=== PATIENT | male | born 1995 | race Caucasian/White ===

== ENCOUNTER 2016-05-27 21:15 | Emergency (ER) | payer BC ==
[~2016-05-27 21:15] MED LIST: PROCHLORPERAZINE INJ 5 MG/ML 2 ML VIAL IV ONE; diPHENhydraMINE IV* 50 MG/ML 1 ml VIAL (BENADRYL) IV ONE
--- NOTE | 2016-05-27 22:14 | RAD ---
INDICATION: Worse headache of his life. COMPARISON: There are no prior studies available for comparison. TECHNIQUE: Contiguous axial sections of the brain were obtained from the skull base to the vertex without contrast. FINDINGS: The ventricles, cisterns and sulci are within normal limits. No significant focal abnormality or mass effect is seen. There is no evidence for hemorrhage. No significant focal osseous abnormality is seen. The visualized portion of the paranasal sinuses and mastoid air cells appear clear. IMPRESSION: NO EVIDENCE FOR ACUTE INTRACRANIAL ABNORMALITY.
[2016-05-27] MEDS ORDERED: NS 0.9% 1000 ML* 1,000 ML IV ONE (23:58)
[2016-05-28 00:43] LABS: Hematocrit 42 % (42-52); Hemoglobin 14.5 g/dl (14.0-18.0); Mean Corpuscular HGB Conc 35 g/dl (31-36); Mean Corpuscular Hemoglobin 30 pg (27-31); Mean Corpuscular Volume 86 fL (80-94); Mean Platelet Volume 9 um3 (7.4-10.4); Red Cell Distribution Width 13 % (10.5-15); White Blood Count 6.1 10^3/ul (3.5-10.8)
[2016-05-28 01:08] LABS: BUN/Creatinine Ratio 13.8 (8-20); EGFR African American 131.6 (>60); EGFR Non-African American 102.3 (>60); Globulin 2.7 g/dL (2-4); Potassium 3.8 mmol/L (3.5-5.0); Total Bilirubin 0.8 mg/dL (0.2-1.0); Total Protein 7.7 g/dL (6.4-8.9)
[2016-05-28] MEDS ORDERED: Iohexol 350* (CONTRAST) 500 ML MDV IV ONE (01:13)
[2016-05-28] MEDS ORDERED: Ketorolac INJ* 30 MG/ML 1 ML VIAL IV PUSH ONE (02:37)
--- NOTE | 2016-05-28 02:59 | ED ---
Headache - HPI Summary HPI Summary: Pt here w/ acute on chronic LAU. Started on Rt side of head in parietal region 1 month ago - was doing sit ups when he had abrupt pain and has had a LAU since. Intermittent. He is here today as he developed a Lt sided LAU while eating dinner tonight. Denies visual change, photophobia, phonophobia, dalia neck pain although LAU is worse w/ neck rotation. Denies nausea, vomiting, difficulty focusing, weakness, numbness, slurred speech, syncope. Denies relief despite trying ibuprofen and acetaminophen which he's been taking in high doses since this started 1 month ago. No previous h/o LAU's. Admits he's had intermittently elevated BP but never high enough or consistently enough to warrant anti- hypertensive medication. Was seen at [facility] who recommended an MRA. NOTE: h/o Lyme disease 6 years ago. Was tx'd w/ anbx. No issues since -denies palpitations, chest pain, joint pain, rash, LAU, paresthesias. Denies h/o stress, muscle tension, neck injury. No radicular pain or neuropathies. Fam h/o migraines. - History Of Current Complaint Chief Complaint: EDHeadache Stated Complaint: HEAD PAIN Time Seen by Provider: 05/27/16 22:19 Hx Obtained From: Patient - Allergies/Home Medications Allergies/Adverse Reactions: Allergies Allergy/AdvReac Type Severity Reaction Status Date / Time No Known Allergies Allergy Verified 05/28/16 00:33 Home Medications: Home Medications NK [No Home Medications Reported] 05/28/16 [History Confirmed 05/28/16] PMH/Surg Hx/FS Hx/Imm Hx Previously Healthy: Yes Endocrine/Hematology History: Denies: Hx Anticoagulant Therapy, Hx Blood Disorders, Hx Diabetes, Hx Unexplained Bleeding, Hx Coagulopothy, Autoimmune Disease Cardiovascular History: Reports: Hx Hypertension - BORDERLINE, UNMEDICATED Denies: Hx Cardiomegaly, Hx Congenital Heart Disease, Hx Myocardial Infarction, Hx Rheumatic Fever, Hx Syncope, Hx Valvular Heart Disease History: Denies: Hx Renal Disease Musculoskeletal History: Denies: Hx Arthritis, Hx Back Problems Neurological History: Denies: Hx Headaches, Hx Migraine, Hx Transient Ischemic Attacks (TIA), Other Neuro Impairments/Disorders - h/o head injury - Immunization History Immunizations Up to Date: Yes - including meningiococcal Infectious Disease History: No Infectious Disease History: Reports: History Other Infectious Disease - Lyme at 6y.o. - tx'd w/o complications or residual effects Denies: Traveled Outside the [place] in Last 30 Days - Family History Known Family History: Positive: Other - mom- migraines - Social History Occupation: Student Lives: With Family - roommate Alcohol Use: None Hx Substance Use: No Substance Use Type: Reports: None Hx Tobacco Use: No Smoking Status (MU): Never Smoked Tobacco Review of Systems Negative: Fever, Chills Negative: Photophobia, Blurred Vision, Diplopia Negative: Sore Throat, Ear Ache, Nasal Discharge Negative: Palpitations, Chest Pain Negative: Shortness Of Breath, Cough Negative: Abdominal Pain, Vomiting, Diarrhea, Nausea Negative: burning, dysuria, discharge, frequency, flank pain Negative: Arthralgia, Myalgia Negative: Rash, Bruising Positive: Headache - see HPI. Negative: Weakness, Paresthesia, Numbness, Syncope, Slurred Speech Psychological: Normal - concerned All Other Systems Reviewed And Are Negative: Yes Physical Exam Triage Information Reviewed: Yes Vital Signs On Initial Exam: Initial Vitals Temp Pulse Resp BP Pulse Ox 99.2 F 90 18 175/75 98 05/27/16 21:28 05/27/16 21:28 05/27/16 21:28 05/27/16 21:28 05/27/16 21:28 Vital Signs Reviewed: Yes Appearance: Positive: Well-Appearing, No Pain Distress, Well-Nourished Skin: Positive: Warm, Dry - no ecchymosis, no erythema, no lesions over affected area Head/Face: Positive: Normal Head/Face Inspection - NTTP, no gross deformity. Negative: Temporal Artery Tenderness, TMJ Tenderness, Scalp Eyes: Positive: Normal, EOMI, UBALDO - no photophobia, Conjunctiva Clear. Negative: Conjunctiva Inflammed, Discharge ENT: Positive: Normal ENT inspection, Hearing grossly normal, Pharynx normal, TMs normal. Negative: Nasal congestion, Nasal drainage, Tonsillar swelling, Tonsillar exudate Dental: Negative: Dental Fracture @, Abscess @ Neck: Positive: Supple, Nontender, No Lymphadenopathy Respiratory/Lung Sounds: Positive: Clear to Auscultation, Breath Sounds Present. Negative: Rales, Rhonchi, Wheezes Cardiovascular: Positive: Normal, RRR, Pulses are Symmetrical in both Upper and Lower Extremities, Other - no carotid bruit appreciated B/L upon auscultation, S1, S2. Negative: Murmur, Rub, Leg Edema Left, Leg Edema Right Abdomen Description: Positive: Nontender, Soft Bowel Sounds: Positive: Present Musculoskeletal: Positive: Normal, Strength/ROM Intact Neurological: Positive: Normal, Sensory/Motor Intact, Alert, Oriented to Person Place, Time, CN Intact II-III, Reflexes Intact, Normal Gait, Facial Symmetry, Speech Normal, Other - coordinated. Negative: Disoriented Psychiatric: Positive: Normal - pleasant, calm, appreciative - [place] Coma Scale Coma Scale Total: 15 Diagnostics - Vital Signs Vital Signs Temp Pulse Resp BP Pulse Ox 05/28/16 01:10 78 130/61 96 05/28/16 01:00 80 126/51 98 05/28/16 00:50 75 140/78 98 05/28/16 00:40 77 142/81 98 05/28/16 00:30 76 135/69 97 05/28/16 00:26 98.9 F 79 16 140/70 97 05/28/16 00:20 70 140/70 97 05/28/16 00:10 81 144/92 98 05/28/16 00:01 65 157/87 98 05/28/16 00:00 77 97 05/27/16 23:50 78 131/75 97 05/27/16 23:40 78 140/86 98 05/27/16 23:30 82 143/93 99 05/27/16 23:28 81 97 05/27/16 23:20 88 142/84 98 05/27/16 23:10 86 139/75 98 05/27/16 23:00 84 140/78 97 05/27/16 22:50 80 139/86 97 05/27/16 22:47 81 97 05/27/16 22:45 158/79 05/27/16 21:28 99.2 F 90 18 175/75 98 - Laboratory Lab Results: Lab Results 05/28/16 05/28/16 05/28/16 Range/Units 00:10 00:10 00:10 WBC 6.1 (3.5-10.8) 10^3/ul RBC 4.90 (4.0-5.4) 10^6/ul Hgb 14.5 (14.0-18.0) g/dl Hct 42 (42-52) % MCV 86 (80-94) fL MCH 30 (27-31) pg MCHC 35 (31-36) g/dl RDW 13 (10.5-15) % Plt Count 198 (150-450) 10^3/ul MPV 9 (7.4-10.4) um3 Neut % (Auto) 44.0 (38-83) % Lymph % (Auto) 48.4 H (25-47) % Josephine % (Auto) 6.4 (1-9) % Eos % (Auto) 0.9 (0-6) % Baso % (Auto) 0.3 (0-2) % Absolute Neuts (auto) 2.7 (1.5-7.7) 10^3/ul Absolute Lymphs (auto) 3.0 (1.0-4.8) 10^3/ul Absolute Monos (auto) 0.4 (0-0.8) 10^3/ul Absolute Eos (auto) 0.1 (0-0.6) 10^3/ul Absolute Basos (auto) 0 (0-0.2) 10^3/ul Absolute Nucleated RBC 0.01 10^3/ul Nucleated RBC % 0.2 APTT 30.0 (26.0-36.3) seconds Sodium (133-145) mmol/L Potassium (3.5-5.0) mmol/L Chloride (101-111) mmol/L Carbon Dioxide (22-32) mmol/L Anion Gap (2-11) mmol/L BUN (6-24) mg/dL Creatinine (0.67-1.17) mg/dL Est GFR ( Amer) (>60) Est GFR (Non-Af Amer) (>60) BUN/Creatinine Ratio (8-20) Glucose (70-100) mg/dL Lactic Acid 1.4 (0.5-2.0) mmol/L Calcium (8.6-10.3) mg/dL Total Bilirubin (0.2-1.0) mg/dL AST (13-39) U/L ALT (7-52) U/L Alkaline Phosphatase (34-104) U/L Total Protein (6.4-8.9) g/dL Albumin (3.2-5.2) g/dL Globulin (2-4) g/dL Albumin/Globulin Ratio (1-3) Blood Type Antibody Screen 05/28/16 05/28/16 Range/Units 00:10 00:10 WBC (3.5-10.8) 10^3/ul RBC (4.0-5.4) 10^6/ul Hgb (14.0-18.0) g/dl Hct (42-52) % MCV (80-94) fL MCH (27-31) pg MCHC (31-36) g/dl RDW (10.5-15) % Plt Count (150-450) 10^3/ul MPV (7.4-10.4) um3 Neut % (Auto) (38-83) % Lymph % (Auto) (25-47) % Josephine % (Auto) (1-9) % Eos % (Auto) (0-6) % Baso % (Auto) (0-2) % Absolute Neuts (auto) (1.5-7.7) 10^3/ul Absolute Lymphs (auto) (1.0-4.8) 10^3/ul Absolute Monos (auto) (0-0.8) 10^3/ul Absolute Eos (auto) (0-0.6) 10^3/ul Absolute Basos (auto) (0-0.2) 10^3/ul Absolute Nucleated RBC 10^3/ul Nucleated RBC % APTT (26.0-36.3) seconds Sodium 137 (133-145) mmol/L Potassium 3.8 (3.5-5.0) mmol/L Chloride 101 (101-111) mmol/L Carbon Dioxide 29 (22-32) mmol/L Anion Gap 7 (2-11) mmol/L BUN 13 (6-24) mg/dL Creatinine 0.94 (0.67-1.17) mg/dL Est GFR ( Amer) 131.6 (>60) Est GFR (Non-Af Amer) 102.3 (>60) BUN/Creatinine Ratio 13.8 (8-20) Glucose 93 (70-100) mg/dL Lactic Acid (0.5-2.0) mmol/L Calcium 10.0 (8.6-10.3) mg/dL Total Bilirubin 0.80 (0.2-1.0) mg/dL AST 16 (13-39) U/L ALT 14 (7-52) U/L Alkaline Phosphatase 70 (34-104) U/L Total Protein 7.7 (6.4-8.9) g/dL Albumin 5.0 (3.2-5.2) g/dL Globulin 2.7 (2-4) g/dL Albumin/Globulin Ratio 1.9 (1-3) Blood Type A Positive Antibody Screen Pending Result Diagrams: 05/28/16 00:10 05/28/16 00:10 Lab Statement: Any lab studies that have been ordered have been reviewed, and results considered in the medical decision making process. Re-Evaluation - Re-Evaluation First Eval Change: Improved - states " this is the best I've felt since this started" - LAU resolved Headache Course/Dx - Course Course Of Treatment: Pt's LAU does not appear to be of life threatening pathology. May be a migraine and he had complete relief w/ migraine cocktail today. Advised lifestyle support (see d/c for details) and f/u w/ PCP, neurology if warranted. Reviewed danger s/sx of when to return to ED. Pt agrees w/ plan. - Diagnoses Differential Diagnosis/HQI/PQRI: CVA, Meningitis, Migraine, Sinus Headache, Subarachnoid Hemorrhage, Tension Headache, Other - Lyme Provider Diagnoses: Headache - Physician Notifications Discussed Care Of Patient With: Dr. Samaniego Discharge - Discharge Plan Condition: Stable Disposition: HOME Patient Education Materials: Migraine Headache (ED), Acute Headache (ED) Forms: *School Release Referrals: [facility] MARY Vieira [Primary Care Provider] - Additional Instructions: The cause of your headache is unknown however it does not appear to be from an intracranial bleed. You responded well to a migraine cocktail with a family history of migraines so this is a possible explanation. However, with your history of acute onset and intermittent hypertension, you may follow-up with [facility] for MRA testing as this is the test of choice. Call tomorrow to schedule an appointment. In the meantime, rest, stay hydrated and try to wean yourself off of medications as you can experience rebound headaches from taking medication consistently. *If you develop worsening of you headache, fever, chills, vomiting, visual change, numbness, or weakness, return to ED
[2016-05-28 03:41] VITALS: BP 132/65
--- NOTE | 2016-05-28 07:54 | RAD ---
HISTORY: Headache with Valsalva COMPARISONS: Head CT dated May 28, 2015 TECHNIQUE: Multiple contiguous axial CT scans were obtained of the head and neck After the administration of nonionic intravenous contrast timed to the systemic arterial phase of contrast enhancement. Coronal and sagittal multiplanar reformations are submitted for review. Multiple 3-D maximum intensity projection reconstructions are also submitted for review. FINDINGS: CTA NECK: AORTIC ARCH: The aortic arch is not completely visualized within the [id number] the current examination. There is no proximal stenosis of the cephalic great vessels. RIGHT VERTEBRAL ARTERY: The right vertebral artery is patent along its course, without stenosis. LEFT VERTEBRAL ARTERY: The left vertebral artery is patent along its course, without stenosis. DOMINANCE: The vertebral arteries are codominant. RIGHT COMMON CAROTID ARTERY: The right common carotid artery is patent. The right carotid bifurcation occurs at C4-C5 RIGHT INTERNAL CAROTID ARTERY: There is no right internal carotid artery stenosis by NASCET criteria. RIGHT EXTERNAL CAROTID ARTERY: The right external carotid artery is unremarkable. LEFT COMMON CAROTID ARTERY: The left common carotid artery is patent. The left carotid bifurcation occurs at C4-C5 LEFT INTERNAL CAROTID ARTERY: There is no left internal carotid artery stenosis by NASCET criteria. LEFT EXTERNAL CAROTID ARTERY: The left external carotid artery is unremarkable. VENOUS CIRCULATION: The venous system is unremarkable. SALIVARY GLANDS: The parotid glands, submandibular glands, sublingual glands are normal. NASAL CAVITY/NASOPHARYNX: The nasal cavity and nasopharynx are normal. ORAL CAVITY/OROPHARYNX: The oral cavity is obscured by streak artifact from dental amalgam. The visualized oral cavity and oropharynx are unremarkable. LARYNGEAL APPARATUS/HYPOPHARYNX: The laryngeal apparatus and hypopharynx are normal. UPPER AIRWAY/UPPER ESOPHAGUS: The visualized upper airway and esophagus are normal. LUNG APICES: The lung apices are clear. THYROID GLAND: The thyroid gland is normal. LYMPH NODES: There is no lymphadenopathy by size criteria. BONES AND SOFT TISSUES: No bone or soft tissue abnormalities are noted. CTA HEAD: INTRACRANIAL CIRCULATION: There is no aneurysm, vascular malformation, occlusion, or stenosis of the visualized intracranial circulation. The anterior communicating artery complex is clear. Bilateral posterior communicating arteries are identified. VENOUS CIRCULATION: The venous system is unremarkable. PERFUSION: There is no obvious parenchymal perfusion deficit. HEMORRHAGE/INFARCT: There is no hemorrhage or acute infarct. MASSES/SHIFT: There is no mass or shift. EXTRA-AXIAL SPACES: There are no extra-axial fluid collections. SULCI AND VENTRICLES: The sulci and ventricles are normal in size and position for the patient's stated age. CEREBRUM: There are no focal parenchymal abnormalities. BRAINSTEM: There are no focal parenchymal abnormalities. CEREBELLUM: There are no focal parenchymal abnormalities. PARANASAL SINUSES: The paranasal sinuses are clear. ORBITS: The orbits are unremarkable. BONES AND SOFT TISSUE: No bone or soft tissue abnormalities are noted. OTHER: There is no abnormal enhancement. IMPRESSION: 1. NO INTERNAL CAROTID ARTERY STENOSIS BY NASCET CRITERIA. 2. NO ANEURYSM, VASCULAR MALFORMATION, OCCLUSION, OR STENOSIS OF THE VISUALIZED INTRACRANIAL CIRCULATION.. CPT II Codes: 3100F
[2016-05-31 15:26] LABS: Lyme Disease IgG Ab WB Negative (Negative)
== END 2016-05-28 03:30 | disposition home or self-care (01) ==
LOC: ED 21:15
DX: R51 Headache (principal)
CPT/HCPCS: 36415; 70450; 70496; 70498; 80053; 83605; 85025; 85730; 86617; 86618; 86850; 86900; 86901; 96374; 96375; 99283; J0780; J1200; J1885; Q9967